=== PATIENT | male | born 1955 | race Caucasian/White ===

== ENCOUNTER 2022-11-12 09:22 | Outpatient (CLI) | payer MEDICARE, SELFPAY ==
--- NOTE | ~2022-11-12 | NM_ITS ---
NM bone scan whole body INDICATION: Malignant neoplasm of the prostate TECHNIQUE: The patient was injected with 25.7 mCi Tc 99m HDP. Gamma camera images of the region of i nterest and whole body were obtained. COMPARISON: None FINDINGS: There is a focus of radiotracer uptake in the sternum. There is bilateral symmetric uptake in the shoulders and sternoclavicular joints as well as the right knee, likely degenerative joint dis ease. There is mild multilevel paracentral uptake in the spine, also likely degenerative. IMPRESSION: 1: Focal uptake in the sternum is nonspecific. Cannot exclude metastatic disease. 2: Multifocal uptake in the shoulders, spine, sternoclavicular joints and right knee, likely were se condary to degenerative joint disease. Reviewed, dictated and finalized at location A. IMPRESSION: 1: Focal uptake in the sternum is nonspecific. Cannot exclude metastatic disea se. 2: Multifocal uptake in the shoulders, spine, sternoclavicular joints and righ t knee, likely were secondary to degenerative joint disease.
== END 2022-11-12 09:23 | disposition home or self-care (01) ==
PROVIDERS: Visit Provider Radiology Radiation Oncology
DX: C61 Malignant neoplasm of prostate (principal)
CPT/HCPCS: 78306; A9503

== ENCOUNTER 2022-11-15 12:26 | Outpatient (CLI) | payer MEDICARE, SELFPAY ==
--- NOTE | ~2022-11-15 | PE_ITS ---
EXAMINATION: PET_PETPSMAST_PT DATE: 11/15/2022 15:35 INDICATION: Malignant neoplasm of the prostate TECHNIQUE: 8.607 mCi of pipflufolastat F-18 (18-F-DCFPyL) was administered i.v. Low dose computed to mography (CT) images were acquired from the base of the brain to the base of the brain to the proxima l thighs for attenuation correction and anatomic localization. Positron emission tomography (PET) tyrone ges were acquired in the same distribution beginning 69 minutes after injection. Images including fus ed PET/CT images were reconstructed in axial, coronal, and sagittal planes. Automated exposure contro l technique was employed. The dose-length product was 1158.37mGy-cm. COMPARISON: None FINDINGS: Head/neck: There is symmetric increased activity in the oral cavity, palatine tonsils, parotid glands, submandi bular glands, laryngeal muscles and ocular muscles without CT correlate, likely physiologic. No patho logically enlarged cervical lymphadenopathy or suspicious foci of increased FDG uptake in the visuali zed head or neck. Chest: Calcified nodules in the right lung along with calcified right hilar and mediastinal lymph nodes cons istent with old granulomatous disease. Scattered mild discoid atelectasis in the bilateral lower lung s. No suspicious pulmonary nodules, pneumonia or pleural effusion. Heart size is normal. No pericardi al effusion. Thoracic aorta is normal in caliber. Relatively symmetric mild activity associated with a few normal-sized bilateral axillary lymph nodes are the most intense with maximal SUV of 4.5 which remains significantly lower than the level activity from the liver. No other pathologically enlarged or PSMA avid thoracic lymphadenopathy. Abdomen/pelvis/proximal thighs: Physiologic renal accumulation and excretion of activity in the kidneys, bladder and along portions o f ureters. Normal degree and slightly heterogenous pattern of increased uptake throughout the liver a nd spleen without radiologic correlate or dominant PSMA avid lesion. There are also few scattered sma ll splenic and hepatic calcifications consistent with old granulomatous disease. The gallbladder, weinstein creas and bilateral adrenal glands are normal. Moderate uptake scattered throughout the bowels with t ypical duodenal and proximal jejunal predominance and without radiologic correlate, also likely physi ologic. There is extensive colonic diverticulosis with a sigmoid predominance and without adjacent in flammatory change to suggest diverticulitis. Normal appendix. Small fat-containing right inguinal her nelson. Postoperative change of prior umbilical and left inguinal hernia repairs. 2.6 x 4.0 x 1.8 cm hyp erdense mass in the fat anterior to the bladder which is without evident PSMA uptake. Prostatomegaly measuring 5.1 x 4.9 cm with heterogeneous mild PSMA uptake with maximal SUV of 5.0. No other abnormal foci of increased uptake or pathologically enlarged lymphadenopathy in the abdomen, pelvis or proxim al thighs. 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 Radiolucent L4 hemangioma with thickened internal vertical thickened trabecular patte rn and without abnormal uptake. No suspicious lytic, blastic or PSMA avid thoracic lymphadenopathy. IMPRESSION: 1. Prostatomegaly with heterogeneous mild increased uptake in the prostate cyst with reported known p rostate cancer. 2. Mild uptake associated with a few normal-sized bilateral axillary lymph nodes which would be an at ypical pattern for metastatic disease and are more likely reactive. No lesion suspicious for metastat ic disease. 3. Nonspecific relatively high attenuation 4.0 x 2.6 x 1.8 cm mass versus complex fluid collection wi thout associated PSMA activity along the left anterior dome of the bladder. Correlate with any prior outside imaging is otherwise would consider further evaluation wi
== END 2022-11-15 12:27 | disposition home or self-care (01) ==
LOC: ANHIMG 12:28
PROVIDERS: PCP Internal Medicine Infectious Disease; Visit Provider Radiology Radiation Oncology
DX: C61 Malignant neoplasm of prostate (principal); N42.83 Cyst of prostate; R93.41 Abnormal radiologic findings on diagnostic imaging of renal pelvis, ureter, or bladder
CPT/HCPCS: 78815; A9595

== ENCOUNTER 2023-01-09 12:15 | Outpatient (CLI) | payer MEDICARE, SELFPAY ==
--- NOTE | ~2023-01-09 | CT_ITS ---
EXAMINATION: CT abdomen pelvis w con DATE: 01/09/2023 13:29 INDICATION: Pelvic mass. Malignant neoplasm of prostate. TECHNIQUE: Computed tomography (CT) of the abdomen and pelvis was performed with 100 mL Omnipaque 350 intravenous contrast. Automated exposure control and iterative reconstruction technique were employe d. The dose-length product was 1551.56 mGy-cm. COMPARISON: Head CT 11/15/2022 FINDINGS: The visualized portions of the lung bases demonstrate mild atelectasis. Calcified right rogelio g nodules and calcified right hilar lymph nodes are consistent with old granulomatous disease. No ple ural effusion. The heart size is normal. No pericardial effusion. There is a small sliding hiatal her nelson. Calcifications in the liver and spleen are consistent with old granulomatous disease. There is a 14 mm cyst in the liver. The gallbladder, pancreas, adrenal glands, and kidneys are normal. There is subcutaneous fat stranding in anterior abdominal wall, likely inflammation or scarring. There is a p lug from left inguinal hernia repair. There is a right inguinal hernia containing fat. The prostate i s moderately enlarged. There is a hyperdense spacer between the prostate rectum. There is a 3.6 x 1.8 cm nonenhancing hyperdense mass superior to the bladder on the left. There is diverticulosis of the colon without evidence of diverticulitis. The appendix is normal. There are no dilated loops of bowel . Aortic atherosclerosis is noted. There is a 16 x 11 mm left external iliac lymph node. There is no ascites. There is a hemangioma in L4 vertebral body. There is severe lumbar spondylosis and mild thor acic spondylosis. IMPRESSION: 1. 3.6 x 1.8 cm nonenhancing mass superior to the bladder on the left, most likely a benign mass such as a peritoneal inclusion cyst or chronic hematoma. 2. Mildly enlarged left external iliac lymph node, which is indeterminate for metastatic disease. Reviewed, dictated and finalized at location E. IMPRESSION: 1. 3.6 x 1.8 cm nonenhancing mass superior to the bladder on the left, most lik poncho a benign mass such as a peritoneal inclusion cyst or chronic hematoma. 2. Mildly enlarged left external iliac lymph node, which is indeterminate for m etastatic disease.
[2023-01-09 13:33] LABS: Estimated Glomerular Filt Rate > 60
== END 2023-01-09 12:16 | disposition home or self-care (01) ==
PROVIDERS: PCP Internal Medicine Infectious Disease; Visit Provider Urology
DX: R19.00 Intra-abdominal and pelvic swelling, mass and lump, unspecified site (principal)
CPT/HCPCS: 74177; Q9967